=== PATIENT | male | born 1950 | race Caucasian/White ===

== ENCOUNTER → 2017-09-26 | Day surgery (SDC) | payer OTHER ==
--- NOTE | 2017-09-25 12:14 | History and Physical: Surg Cnt ---
History & Physical Date Sep 25, 2017. Chief Complaint nasal polyps History of Present Illness The patient is a 67 year old male with complaints of chronic sinusitis/nasal polyposis Additional History Hepatic Disease: No Endocrine Disorder: No Kidney Disease: No Hypertension: No Heart Disease: No Bleeding Tendencies: No Infectious Diseases: No Allergies Coded Allergies: No Known Allergies (Unverified , 08/26/15) Home Medications Scheduled Multivitamin (Multivitamin), 1 TAB PO Q2D Scheduled PRN Tramadol (Ultram), 50 MG PO Q4H PRN for Pain Physical Examination Skin: warm/dry, no rash Eyes: normal inspection, EOMI, sclerae normal ENT: normal ENT inspection, pharynx normal, + pertinent finding (nasal polyps) Head: normocephalic, atraumatic Neck: supple, no adenopathy, trachea midline Respiratory/Chest: lungs clear, normal breath sounds, no respiratory distress Cardiovascular: regular rate, rhythm, no edema, no murmur Abdomen / GI: normal bowel sounds, non tender Back: normal inspection Extremities: normal inspection, normal range of motion Neurologic/Psych: no motor/sensory deficits, alert, normal reflexes, oriented x 3 Diagnosis chronic sinusitis/nasal polyposis Plan of Treatment endoscopic sinus surgery
[2017-09-25 13:50] VITALS: Ht 177.8 cm; Wt 84.5 kg
[~2017-09-26] VITALS: Ht 177.8 cm; Wt 84.5 kg
[~2017-09-26] MED LIST: AMOX875T PO; ATROPINE SULFATE 0.1 MG/ML 5ML SYR IV PRN; CEFAZOLIN 1000MG IV PUSH 7.5 ML IV SCH; DEXAMETHASONE SOD INJ 4 MG/ML VIAL ONE; EpHEDrine SULFATE INJ 50 MG/ML AMP IV PRN; EpINEphrine INJ 1MG/ML AMP 1 MG/ML AMP ONE; FENTANYL CITRATE INJ 50 MCG/1 ML 2 ML VIAL IV PRN; FENTANYL CITRATE INJ 50 MCG/1 ML 2 ML VIAL ONE; GLYCOPYRROLATE INJ 0.2 MG/ML VIAL ONE; HYDROmorphone INJ 1 MG/ML SYR IV PRN; LACTATED RINGER'S 1000ML 1,000 ML IV SCH; LIDO 2%/EPINEPHRINE 1:100000 20 ML VIAL INFIL ONE; LIDOCAINE 4% MPF SOAK 5 ML = 1 DOSE TOP ONE; LIDOCAINE HCL 2% 2 ML VIAL (20MG/ML) ONE; MIDAZOLAM HCL 1 MG/ML 2ML VIAL ONE; MULT-506 PO; NEOSTIGMINE METHYLSULFATE 5 MG/5 ML SYR ONE; ONDANSETRON INJ 2 MG/ML 2 ML VIAL IV PRN; ONDANSETRON INJ 2 MG/ML 2 ML VIAL ONE; OXYCODONE/ACETAMINOPHEN 5-325 TAB PO PRN; PROMETHAZINE HCL INJ 12.5 MG in SODIUM CHLORIDE 0.9% 50ML 50 ML IV PRN; PROPOFOL IV EMULSION 10 MG/ML 20 ML VIAL IV ONE; SODIUM CHLORIDE 0.9% 1000ML 1,000 ML IV SCH; TRAM-10 PO
--- NOTE | 2017-09-26 08:23 | History & Physical Bridge Note ---
H&P Re-Evaluation Bridge Note: I have examined the patient, reviewed the History & Physical and in the interval since the performance of the History & Physical I have noted the following changes of clinical significance: No changes noted
--- NOTE | 2017-09-26 10:59 | [facility] Post Operative Brief Note ---
Immediate Operative Summary Operative Date Sep 26, 2017. Pre-Operative Diagnosis Chronic Sinusitis Post-Operative Diagnosis Same Procedure(s) Performed Endoscopic Sinus Surgery with Brainlab Navigation, Bilateral Maxillary Sinus, Bilateral Frontal Sinus, and Total Ethmoidectomies Surgeon Dr. Pacheco Salesforce Business Analyst Surgeon(s) None Estimated Blood Loss 100 ml Findings Consistent with Post-Op Diagnosis Specimens A. Right Ethmoid Contents Drains None Anesthesia Type General Complication(s) none Disposition Accompanied Pt To Recovery: yes Disposition: Recovery Room / PACU
--- NOTE | 2017-09-26 11:07 | [facility] Operative Report ---
Operative Report Operative Date Sep 26, 2017. Pre-Operative Diagnosis Chronic Sinusitis Post-Operative Diagnosis Same Procedure(s) Performed Endoscopic Sinus Surgery with Brainlab Navigation, Bilateral Maxillary Sinus, Bilateral Frontal Sinus, and Total Ethmoidectomies Surgeon Dr. Pacheco Field Sales Consultant Surgeon(s) None Estimated Blood Loss 100 ml Specimens A. Right Ethmoid Contents Drains None Anesthesia Type General Complication(s) none Disposition yes Recovery Room / PACU Indications This 67-year-old gentleman presented with chronic sinusitis and recurrence of nasal polyposis blocking all the major sinuses. Description of Procedure The patient was brought to the operating room and placed in the supine position. General endotracheal anesthesia was induced. The [place] device was calibrated and used for the entire procedure. He was prepped and draped in the usual sterile manner. The left maxillary sinus was cannulated and dilated with a 6 mm balloon as was the right maxillary sinus. The left nasal frontal duct was cannulated with guidewire and dilated using the 6 mm balloon with [place] computer guidance. The guidewire was left in place as a marker as the balloon was withdrawn. Frontal sinusotomy was performed using the shaver couple withtheBrainLabdevice opening up the nasal frontal duct by removing polyps from the residual Agger nasi Cell widely opening up the nasal frontal duct. The ethmoid was filled with polyps. It was noted that there was a bulge of the periorbita medially into the ethmoid cavity. All the polyps were removed using the shaver coupled with the computer guidance delineating the posterior most ethmoid air cell, delineating the skull base superiorly and lamina papyracea bilaterally including the dehiscent area of periorbita, exonerating all the polyps in the posterior ethmoid air cells and then exonerating all the polyps in the anterior ethmoid air cells up to the previously dilated nasofrontal duct. There were antrochoanal polyps extending into the maxillary sinus. Therefore the maxillary sinus was opened widely to remove all of the antrochoanal polyps. The sphenoid opening was found using the pointer and then opened using the shaver removing polyps from the anterior face of the sphenoid. The left nasal frontal duct was then redilated with the 6 mm balloon and then irrigated clean with saline and a Contour stent was placed in the left nasal frontal duct. A regular propel stent was placed in the left middle meatus. The right frontal sinusotomy sphenoidotomy total ethmoidectomy and maxillary sinus antrostomy was performed in a similar manner. There was no dehiscence of the periorbita on the side. There were also antrochoanal polyps right side, therefore the maxillary antrostomy was again opened widely to remove the antrochoanal polyps. Contour and propel stents were placed on the right side also after irrigating the sinuses. The patient tolerated procedure well and was taken recovery area in satisfactory condition. I attest to the content of the Intraoperative Record and any orders documented therein. Any exceptions are noted below.
--- NOTE | 2017-09-26 11:10 | Discharge Instructions-SurgCtr ---
Discharge Instructions Date of Service Sep 26, 2017. Visit Reason for Visit: Chronic Sinusitis Discharge Discharge Diagnosis / Problem: And nasal polyposis Discharge Goals Goal(s): Improve function, Improve disease control, Therapeutic intervention Activity Recommendations Activity Limitations: resume your previous activity Anesthesia . Post Anesthesia Instructions: If you have had General Anesthesia or IV Sedation: * Do not drive today. * Resume driving when surgeon permits. * Do not make important decisions or sign legal documents today. * Call surgeon for: 1. Temperature elevations greater than 101 degrees F. 2. Uncontrollable pain. 3. Excessive bleeding. 4. Persistent nausea and vomiting. 5. Medication intolerance (nausea, vomiting or rash). * For nausea and vomiting use only clear liquids such as: tea, soda, bouillon until nausea subsides, then gradually increase diet as tolerated. * If you have any concerns or questions, call your surgeon's office. If physician is unavailable and it is an emergency, call 911 or go to the nearest emergency room. . Instructions / Follow-Up Instructions / Follow-Up ACTIVITY RECOMMENDATIONS: * Being up and around is good, but no strenuous activity, heavy lifting or physical exertion for one week. * Keep your head elevated 30 degrees when lying down or sleeping. * Do not blow your nose for 48 hours, sniff back instead. * Avoid hot showers. OVER THE COUNTER MEDICATIONS: * You may use Tylenol * Avoid aspirin or aspirin containing products, e.g. as they may increase bleeding. SPECIAL CARE INSTRUCTIONS: * Expect to have bloody drainage from your nose and/or down your throat for one to three days. Change drip pad as needed. * Begin irrigating your nose with saline solution today, at least six to ten times per day and sniff back to help remove old clots or crust. * You may experience nasal and facial congestion, pain and pressure, this is normal. * Please call with any significant and/or progressive pain, redness, swelling around the eyes, visual changes, fever of 101.5 degrees F, active bleeding or any problems or concerns. * If active bleeding occurs, spray the nose three times at one minute intervals with Afrin spray and call or cell phone: . If unable to reach the doctor, go to the nearest Emergency Department. Special Diet: * Avoid extremely hot fluids. FOLLOW UP VISIT: Follow-up Visit with Dr. Pacheco If not already scheduled, please call to schedule. Diet Recommendations Home Diet: no limitations Procedures Procedures Performed: Endoscopic Sinus Surgery with Brainlab Navigation, Bilateral Maxillary Sinus, Bilateral Frontal Sinus, and Total Ethmoidectomies Pending Studies Studies pending at discharge: no Medical Emergencies . Who to Call and When: Medical Emergencies: If at any time you feel your situation is an emergency, please call 911 immediately. . Non-Emergent Contact Non-Emergency issues call your: Primary Care Provider . . "Provider Documentation" section prepared by Michelle Pacheco. . [place] Drug Monitoring Program Search Results: no issues identified
[2017-09-26 11:55] VITALS: TEMP 36.1
[2017-09-26 12:22] VITALS: BP 139/87; PULSE 72; O2SAT 97
--- NOTE | 2017-09-26 12:31 | Anesthesia Progress Nt - [facility] ---
Anesthesia Post Op Note Date & Time Sep 26, 2017 at 12:31 Vital Signs Pain Intensity: 1 Vital Signs Past 12 Hours Date Time Temp Pulse Resp B/P (MAP) Pulse Ox O2 Delivery O2 Flow Rate FiO2 09/26/17 12:22 72 16 139/87 (104) 97 Room Air 09/26/17 11:55 36.1 69 12 133/86 (102) 95 Room Air 09/26/17 11:43 68 4 09/26/17 11:43 68 4 96 09/26/17 11:41 152/97 09/26/17 11:39 36.4 68 12 152/97 95 Room Air 09/26/17 11:38 72 15 99 09/26/17 11:38 73 15 09/26/17 11:36 146/92 09/26/17 11:33 69 13 09/26/17 11:33 69 13 98 09/26/17 11:31 147/96 09/26/17 11:28 72 7 95 09/26/17 11:28 72 7 09/26/17 11:26 143/97 09/26/17 11:23 75 14 09/26/17 11:23 75 14 99 09/26/17 11:21 145/96 09/26/17 11:18 69 17 09/26/17 11:18 69 17 100 09/26/17 11:16 143/93 09/26/17 11:13 73 16 09/26/17 11:13 74 16 100 09/26/17 11:11 140/94 09/26/17 11:08 71 13 100 09/26/17 11:08 71 13 09/26/17 11:06 132/82 09/26/17 11:03 68 20 09/26/17 11:03 68 20 100 09/26/17 11:01 127/90 09/26/17 10:59 133/93 09/26/17 10:59 134/91 09/26/17 10:58 36 77 16 133/93 97 Humidified Oxygen 6 Mask 09/26/17 08:00 36.4 77 16 134/88 (103) 97 Room Air Notes Mental Status: alert / awake / arousable, participated in evaluation Pt Amnestic to Procedure: Yes Nausea / Vomiting: adequately controlled Pain: adequately controlled Airway Patency, RR, SpO2: stable & adequate BP & HR: stable & adequate Hydration State: stable & adequate Anesthetic Complications: no major complications apparent
== END | disposition home or self-care (01) ==
LOC: X.SURG 07:45
PROVIDERS: ATTEND Otolaryngology
DX: J32.9 Chronic sinusitis, unspecified (principal); J33.9 Nasal polyp, unspecified; J44.9 Chronic obstructive pulmonary disease, unspecified